=== PATIENT | male | born 1935 | race Caucasian/White ===

== ENCOUNTER 2024-01-08 14:09 | Observation (INO) | payer OTHER ==
[2024-01-08] MEDS: PANTOPRAZOLE 40 MG TABLET PO ONE ×2 (15:22→15:30)
[2024-01-08] MEDS ORDERED: PANTOPRAZOLE 40 MG TABLET PO ONE (15:23)
[2024-01-08 15:30] LABS: BASO % 0.1 % (0-2.0); HEMATOCRIT 39.4 % (35.4-49); HEMOGLOBIN 13.1 GM/dL (11.7-16.9); LYMPH % 18.3 % (8-40); MCHC 33.4 g/dl (32.0-35.9); MEAN PLT VOLUME 8.1 fl (7.5-11.1); MONO % 10.5 % (3.8-10.2); NEUT % 70.1 % (42.8-82.8); PLATELET COUNT 168 10^3/uL (134-434); RDW 15.5 % (11.9-15.9); WHITE BLOOD COUNT 8.8 K/mm3 (4.0-10.0)
[2024-01-08] MEDS: SODIUM CHLORIDE 0.9% 500 ML INFUS.BAG IV ONE (15:30)
[2024-01-08 15:38] LABS: PROTHROMBIN TIME (PATIENT) 11.3 SEC (9.7-13.0)
[2024-01-08 15:41] LABS: ACTIVATED PTT 31.2 SECONDS (25.2-36.5)
[2024-01-08 15:49] LABS: POTASSIUM 4.2 mmol/L (3.5-5.1)
[2024-01-08 15:52] LABS: ALBUMIN 3.2 g/dl (3.4-5.0); BLOOD UREA NITROGEN 31.6 mg/dL (7-18)
[2024-01-08 15:57] LABS: BILIRUBIN,TOTAL 1.4 mg/dL (0.2-1); TOT PROT 6.7 g/dl (6.4-8.2)
[2024-01-08] MEDS ORDERED: guaiFENesin 200 MG/10 ML 10 ML UNIT-DOSE CUPS PO PRN (17:44)
[2024-01-08] MEDS ORDERED: ONDANSETRON 4 MG/2 ML VIAL IVPUSH PRN (17:46)
[2024-01-08] MEDS: SODIUM CHLORIDE 1,000 ML IV SCH (18:31)
[2024-01-08] MEDS: SODIUM CHLORIDE 500 ML IV STA (19:21)
[2024-01-08] MEDS: QUEtiapine FUMARATE 25 MG TABLET PO SCH (21:36)
[2024-01-08] MEDS: MIRTAZAPINE 15 MG TABLET (FP) PO SCH (21:36)
[2024-01-08] MEDS: PANTOPRAZOLE SODIUM 40 MG VIAL IVPUSH SCH (21:37)
[2024-01-09 01:54] VITALS: BMI 21.8
[2024-01-09 09:07] LABS: HEMOGLOBIN 11.9 GM/dL (11.7-16.9); MCH 32.1 pg (25.7-33.7); MEAN CELL VOLUME 97.1 fl (80-96); MEAN PLT VOLUME 8.5 fl (7.5-11.1); PLATELET COUNT 141 10^3/uL (134-434); RDW 15.5 % (11.9-15.9); WHITE BLOOD COUNT 7.6 K/mm3 (4.0-10.0)
[2024-01-09 09:39] LABS: POTASSIUM 4.1 mmol/L (3.5-5.1)
[2024-01-09 09:48] LABS: BLOOD UREA NITROGEN 22.8 mg/dL (7-18)
[2024-01-09 09:49] LABS: CALCIUM 8.8 mg/dL (8.5-10.1)
[2024-01-09 09:53] LABS: CREATININE 0.7 mg/dL (0.55-1.3)
[2024-01-09] MEDS: TAMSULOSIN HCL 0.4 MG CAP PO SCH (12:11)
[2024-01-09] MEDS: POLYETHYLENE GLYCOL (HEALTHYLAX) 3350 17 GM PACKET PO SCH ×2 (12:12→14:45)
[2024-01-09] MEDS ORDERED: POLYETHYLENE GLYCOL (HEALTHYLAX) 3350 17 GM PACKET PO SCH (22:00)
[2024-01-09] MEDS ORDERED: SENNOSIDES 8.6MG TABLET (FP) PO SCH (22:00)
[2024-01-10] MEDS: PANTOPRAZOLE 40 MG TABLET PO SCH (09:45)
[2024-01-10 10:15] LABS: BASO % 0.4 % (0-2.0); EOS % 6.5 % (0-4.5); HEMATOCRIT 34.1 % (35.4-49); HEMOGLOBIN 11.4 GM/dL (11.7-16.9); LYMPH % 19.4 % (8-40); MCH 32.7 pg (25.7-33.7); MCHC 33.4 g/dl (32.0-35.9); MEAN CELL VOLUME 97.7 fl (80-96); MEAN PLT VOLUME 8.6 fl (7.5-11.1); MONO % 13.2 % (3.8-10.2); NEUT % 60.5 % (42.8-82.8); PLATELET COUNT 155 10^3/uL (134-434); RBC 3.49 M/mm3 (4.00-5.60); RDW 14.8 % (11.9-15.9); WHITE BLOOD COUNT 4.8 K/mm3 (4.0-10.0)
[2024-01-10 10:35] LABS: POTASSIUM 3.7 mmol/L (3.5-5.1)
[2024-01-10 11:03] LABS: CALCIUM 8.6 mg/dL (8.5-10.1); MAGNESIUM 1.9 mg/dL (1.8-2.4)
[2024-01-10 11:04] LABS: BLOOD UREA NITROGEN 8.8 mg/dL (7-18)
[2024-01-10 11:07] LABS: CREATININE 0.7 mg/dL (0.55-1.3)
[2024-01-10] MEDS ORDERED: DOCUSATE SODIUM 100 MG CAPSULE (FP) PO ONE (14:45)
[2024-01-10] MEDS: DOCUSATE SODIUM 100 MG CAPSULE (FP) PO ONE (22:55)
[2024-01-11 10:29] LABS: BASO % 0.6 % (0-2.0); EOS % 6.9 % (0-4.5); HEMATOCRIT 37.7 % (35.4-49); HEMOGLOBIN 12.6 GM/dL (11.7-16.9); LYMPH % 21.1 % (8-40); MCH 32.5 pg (25.7-33.7); MCHC 33.5 g/dl (32.0-35.9); MEAN PLT VOLUME 9.1 fl (7.5-11.1); MONO % 8.1 % (3.8-10.2); NEUT % 63.3 % (42.8-82.8); PLATELET COUNT 162 10^3/uL (134-434); RBC 3.88 M/mm3 (4.00-5.60); RDW 14.9 % (11.9-15.9); WHITE BLOOD COUNT 4.2 K/mm3 (4.0-10.0)
[2024-01-11 10:50] LABS: BLOOD UREA NITROGEN 8.2 mg/dL (7-18); CALCIUM 8.8 mg/dL (8.5-10.1); MAGNESIUM 1.9 mg/dL (1.8-2.4)
[2024-01-11 10:52] LABS: BILIRUBIN,TOTAL 1.1 mg/dL (0.2-1); TOT PROT 6.3 g/dl (6.4-8.2)
[2024-01-11 10:54] LABS: CREATININE 0.7 mg/dL (0.55-1.3)
[2024-01-12 09:17] VITALS: RESP 20
[2024-01-12 09:46] LABS: HEMATOCRIT 35.6 % (35.4-49); HEMOGLOBIN 12.3 GM/dL (11.7-16.9); MCH 32.9 pg (25.7-33.7); MCHC 34.5 g/dl (32.0-35.9); MEAN CELL VOLUME 95.5 fl (80-96); MEAN PLT VOLUME 8.5 fl (7.5-11.1); PLATELET COUNT 184 10^3/uL (134-434); RBC 3.72 M/mm3 (4.00-5.60); RDW 14.9 % (11.9-15.9); WHITE BLOOD COUNT 4.1 K/mm3 (4.0-10.0)
[2024-01-12 09:56] LABS: POTASSIUM 4.2 mmol/L (3.5-5.1)
[2024-01-12 10:02] LABS: BLOOD UREA NITROGEN 8.9 mg/dL (7-18); CALCIUM 8.8 mg/dL (8.5-10.1)
[2024-01-12 10:04] LABS: CREATININE 0.7 mg/dL (0.55-1.3)
[2024-01-12 10:07] LABS: BILIRUBIN,TOTAL 0.8 mg/dL (0.2-1); TOT PROT 6.4 g/dl (6.4-8.2)
[2024-01-12 17:35] VITALS: TEMP 98.2
[2024-01-12 23:21] VITALS: BP 108/68; PULSE 51
== END 2024-01-13 06:05 | disposition home health service (06) ==
LOC: JER 14:09 → JERBED 16:50 → J8W 20:28
PROVIDERS: ADMIT Internal Medicine; ATTEND Nurse Practitioner Acute Care
PROC: 3E0337Z Introduction of Electrolytic and Water Balance Substance into Peripheral Vein, Percutaneous Approach (ICD-10-PCS; principal; 2024-01-08)
DX: J18.9 Pneumonia, unspecified organism (principal); K92.0 Hematemesis; G31.83 Neurocognitive disorder with Lewy bodies; F02.80 Dementia in other diseases classified elsewhere, unspecified severity, without behavioral disturbance, psychotic disturbance, mood disturbance, and anxiety; K21.9 Gastro-esophageal reflux disease without esophagitis; K22.10 Ulcer of esophagus without bleeding; K59.09 Other constipation; N40.0 Benign prostatic hyperplasia without lower urinary tract symptoms; F51.05 Insomnia due to other mental disorder; R91.1 Solitary pulmonary nodule; D64.9 Anemia, unspecified; R63.0 Anorexia; Z99.81 Dependence on supplemental oxygen
CPT/HCPCS: 36415; 71045-TC-FY; 74177-TC; 80048; 80053; 82962; 83690; 83735; 84153; 84484; 85025; 85027; 85610; 85730; 86850; 86900; 86901; 93005; 93010; 96360; 97116-GP; 97161-GP; 99285-25; G0378